=== PATIENT | male | born 1960 | race Caucasian/White ===

== ENCOUNTER 2018-05-04 08:49 | Emergency (ER) | payer OTHER ==
[2018-05-04] MEDS ORDERED: NS 0.9% 1000 ML* 3,000 ML IV ONE (08:58)
[2018-05-04] MEDS ORDERED: Ondansetron INJ* 2 MG/ML VIAL IV ONE (09:03)
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
[2018-05-04] MEDS ORDERED: Iodixanol* (CONTRAST) 320 MG/ML 100 ML SDV IV ONE (09:08)
[2018-05-04 09:26] LABS: ABS Basophils 0.1 10^3/ul (0-0.2); ABS Eosinophils 0.1 10^3/ul (0-0.6); ABS Lymphocytes 1.5 10^3/ul (1.0-4.8); ABS Monocytes 0.6 10^3/ul (0-0.8); ABS Neutrophils 5.6 10^3/ul (1.5-7.7); ABS Nucleated RBC 0 10^3/ul; Eosinophil % 1.9 % (0-6); Hematocrit 47 % (42-52); Hemoglobin 15.7 g/dl (14.0-18.0); Lymphocyte % 18.6 % (25-47); Mean Corpuscular HGB Conc 33 g/dl (31-36); Mean Corpuscular Hemoglobin 28 pg (27-31); Mean Corpuscular Volume 85 fL (80-94); Mean Platelet Volume 7.2 um3 (7.4-10.4); Nucleated Red Blood Cells % 0.2; Platelet Count 275 10^3/ul (150-450); Red Blood Count 5.53 10^6/ul (4.00-5.40); Red Cell Distribution Width 14 % (10.5-15); White Blood Count 7.9 10^3/ul (3.5-10.8)
[2018-05-04 09:40] LABS: INR 0.88 (0.77-1.02)
[2018-05-04 09:50] LABS: EGFR Non-African American 79.4 (>60)
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
[2018-05-04 11:39] LABS: Urine Appearance Clear; Urine Blood Negative (Negative); Urine Color Yellow; Urine Ketones Negative (Negative); Urine Protein Negative (Negative); Urine Specific Gravity 1.047 (1.010-1.030); Urine Urobilinogen Negative (Negative)
[2018-05-04 15:20] VITALS: BP 136/102
== END 2018-05-04 15:19 | disposition home or self-care (01) ==
LOC: ED 08:49
DX: R07.89 Other chest pain (principal); S69.82XA Other specified injuries of left wrist, hand and finger(s), initial encounter; V43.52XA Car driver injured in collision with other type car in traffic accident, initial encounter; Y92.410 Unspecified street and highway as the place of occurrence of the external cause; M71.22 Synovial cyst of popliteal space [Baker], left knee; N28.1 Cyst of kidney, acquired; M19.071 Primary osteoarthritis, right ankle and foot
CPT/HCPCS: 36415; 70450; 71260; 72125; 74177; 80053; 80307; 81003; 82150; 82550; 83605; 83690; 84484; 85025; 85610; 86850; 86900; 86901; 93005; 96361; 96374; 99283; J2405; Q9967